=== PATIENT | female | born 1975 | race Hispanic/Latino ===

== ENCOUNTER 2024-07-07 08:22 | Emergency (ER) | payer BC ==
[~2024-07-07] VITALS: Ht 160 cm; Wt 86.2 kg
[2024-07-07 08:57] LABS: BASOPHILS # (AUTO) 0.03 K/uL (0.00-0.20); BASOPHILS % (AUTO) 0.4 % (0.0-5.0); EOSINOPHILS # (AUTO) 0.14 K/uL (0.00-0.70); EOSINOPHILS % (AUTO) 1.9 % (0.0-8.0); HEMATOCRIT 44.6 % (36-48); IMMATURE GRANULOCYTE ABSOLUTE 0.03 K/uL (0-1); LYMPHOCYTES # (AUTO) 2.4 K/uL (1.0-4.8); LYMPHOCYTES % (AUTO) 31.6 % (21.0-51.0); MEAN CORPUSCULAR HEMOGLOBIN 26.9 pg (27.0-33.0); MEAN CORPUSCULAR VOLUME 81.7 fL (79-99); MONOCYTES # (AUTO) 0.5 K/uL (0.1-1.0); MONOCYTES % (AUTO) 6.3 % (3.0-13.0); NEUTROPHILS # (AUTO) 4.5 K/uL (1.8-7.7); NEUTROPHILS % (AUTO) 59.4 % (40.0-77.0); PLATELET COUNT (AUTO) 280 K/uL (130-400); RED BLOOD CELL COUNT(AUTO) 5.46 MIL/uL (4.00-5.50); RED CELL DISTRIBUTION WIDTH 13.9 % (11.0-15.5); WHITE BLOOD COUNT (AUTO) 7.5 K/uL (4.8-10.8)
--- NOTE | 2024-07-07 09:06 | ERN ---
ED Note History of Present Illness Stated Complaint: RIGHT FLANK PAIN X 2 WEEKS Chief Complaint: Flank Pain Dictation: This is a case of 48-year-old female with no significant past medical history who presented to the ER with the complaints of right flank pain for 2 weeks. She reports that she 1st experienced pain on the right flank side 2 weeks ago and consulted a primary care physician. Kidney stones were suspected, but no imaging was done due to technical issues and was prescribed antibiotics. She states that the pain persists and is not improved. She describes the pain as constant, moderate radiating from the right mid back to the front and to the groin which increases in intensity during movement. She also notes experiencing burning sensation when urinating. She denies headache, dizziness, nausea, vomiting, chest pain, palpitations, shortness of breath, diarrhea/constipation, blood in urine. Allergies: Coded Allergies: No Known Drug Allergies (Unverified Allergy, Unknown, 07/07/24) Home Meds Active Scripts Ibuprofen (Ibuprofen 800 mg Tab) 800 Mg Tab, 1 TAB PO TID for 14 Days, #42 TAB 0 Refills Prov:TERESA PARK MD 07/07/24 Cyclobenzaprine HCl (Flexeril) 10 Mg Tab, 1 TAB PO HS PRN for muscle spasm for 14 Days, #14 TAB 0 Refills Prov:TERESA PARK MD 07/07/24 Past Medical History Past Medical History: No Pertinent History Surgical History: Cholecystectomy, Other Surgical History Other: TUBAL, L KNEE Review of System Dictation Constitutional: No appetite loss, No fevers, chills , No night sweats, No weakness, fatigue Neck: No swelling. pain or stiffness Respiratory: No cough, shortness of breath, wheezing Cardiovascular: No chest pain,, palpitations, dyspnea, No edema Gastrointestinal: Right flank pain radiating to groin No nausea, vomiting, No diarrhea, constipation Genitourinary: Burning sensation during urination, No blood in urine, No urinary incontinence, No frequency or urgency Musculoskeletal: No joint pain, muscle pain, swelling or stiffness, Neurological: No numbness, tingling, No weakness, tremors or seizures Psychiatric: : No depression, No anxiety, No sleep disturbance, No Memory changes Initial Vital Sign VS Vital Signs Date Time Temp Pulse Resp B/P (MAP) Pulse Ox O2 Delivery O2 Flow Rate FiO2 07/07/24 08:22 98.8 76 20 154/82 99 Room Air 0 07/07/24 08:56 21 Physical Exam Dictation Physical Exam Dictation VITAL SIGNS: Reviewed. GENERAL APPEARANCE: Alert, oriented x3, no acute distress, obese. HEAD AND FACE: Non-traumatic. EYES: PERRL, pink conjunctivas, eyelid no trauma, anterior chamber clear. NOSE: No discharge, no bleeding. OROPHARYNX: Mouth normal, teeth no caries, tongue pink. Pharynx clear, no erythema. Tonsils no exudates, no abscesses noted. Mucous membrane moist. NECK: Supple, non-tender, no thyromegaly, no masses, no JVD, no bruits. BREAST: Deferred. CHEST: No tenderness, no crepitus, no paradoxical movement, no retractions. LUNGS: Clear, well-ventilated, symmetric, no rales, no wheezing, no rhonchi, no stridor, good breath sounds bilaterally. HEART: Regular rate, regular rhythm, no murmur VASCULAR: No peripheral edema. ABDOMEN: Mild tenderness on palpation in right flank, right upper and lower quadrant and pelvic region Soft, positive bowel sounds, nondistended, no guarding GENITAL: Deferred. NEUROLOGICAL: Normal speech, gross motor function intact, gross sensory func tion intact. MUSCULOSKELETAL: Neck nontender, full range of motion, no midline spine tenderness, full range of motion. EXTREMITIES: Nontender, full range of motion. SKIN: Color pink, dry, no turgor, no rash, no lacerations, no abrasions, no contusions. LYMPHATICS: Deferred. Results (Laboratory/Radiology) Laboratory/Radiology Laboratory Tests Test 07/07/24 08:45 07/07/24 08:50 Urine Color LIGHT-YELLOW (YELLOW) Urine Appearance CLEAR (CLEAR) Urine pH 5.5 (5.0-8.0) Urine Specific [place] 1.020 (1.001-1.031) Urine Protein NEGATIVE mg/dL (NEGATIVE) Urine Glucose (UA) NEGATIVE mg/dL (NEGATIVE) Urine Ketones NEGATIVE mg/dL (NEGATIVE) Urine Occult Blood NEGATIVE (NEGATIVE) Urine Nitrate NEGATIVE (NEGATIVE) Urine Bilirubin NEGATIVE mg/dL (NEGATIVE) Urine Urobilinogen 0.2 mg/dL (0.2-1.0) Urine Leukocyte Esterase NEGATIVE Willi/uL White Blood Count 7.5 K/uL (4.8-10.8) Red Blood Count 5.46 MIL/uL (4.00-5.50) Hemoglobin 14.7 g/dL (12.0-16.0) Hematocrit 44.6 % (36-48) Mean Corpuscular Volume 81.7 fL (79-99) Mean Corpuscular Hemoglobin 26.9 pg (27.0-33.0) L Mean Corpuscular Hemoglobin Concent 33.0 g/dL (32.0-36.0) Red Cell Distribution Width 13.9 % (11.0-15.5) Platelet Count 280 K/uL (130-400) Mean Platelet Volume 9.8 fL (7.5-10.5) Immature Granulocyte % (Auto) 0.4 % (0-1) Neutrophils (%) (Auto) 59.4 % (40.0-77.0) Lymphocytes (%) (Auto) 31.6 % (21.0-51.0) Monocytes (%) (Auto) 6.3 % (3.0-13.0) Eosinophils (%) (Auto) 1.9 % (0.0-8.0) Basophils (%) (Auto) 0.4 % (0.0-5.0) Neutrophils # (Auto) 4.5 K/uL (1.8-7.7) Lymphocytes # (Auto) 2.4 K/uL (1.0-4.8) Monocytes # (Auto) 0.5 K/uL (0.1-1.0) Eosinophils # (Auto) 0.14 K/uL (0.00-0.70) Basophils # (Auto) 0.03 K/uL (0.00-0.20) Absolute Immature Granulocyte (auto 0.03 K/uL (0-1) Nucleated Red Blood Cells 0.0 % (0.0-0.19) Sodium Level 140 mmol/L (136-145) Potassium Level 4.1 mmol/L (3.5-5.1) Chloride Level 106 mmol/L (101-111) Carbon Dioxide Level 31 mmol/L (21-32) Blood Urea Nitrogen 14 mg/dL (7-18) Creatinine 0.9 mg/dL (0.5-1.0) Glomerular Filtration Rate Calc 78 mL/min (>90) Random Glucose 109 mg/dL (70-105) H Total Calcium 8.8 mg/dL (8.5-10.1) Total Bilirubin 0.5 mg/dL (0.2-1.0) Direct Bilirubin 0.1 mg/dL (0.0-0.3) Aspartate Amino Transf (AST/SGOT) 30 U/L (10-37) Alanine Aminotransferase (ALT/SGPT) 50 U/L (12-78) Alkaline Phosphatase 99 U/L (50-136) Total Protein 7.0 g/dL (6.0-8.3) Albumin 3.4 g/dL (3.5-5.0) L Lipase 38 U/L (16-77) CT Scan Comment: PROCEDURE: ABD PELVWO - CT ABD/PEL WO CON RENAL/APPY Exam Type: CT ABD/PEL WO CON RENAL/APPY Clinical Information: rt flank p Comparison: None CT Dose Index (CTDI): 10.20 mGy Dose Length Product (DLP): 530.00 total mGy-cm PROTOCOL: Routine noncontrast helical scanning of the abdomen and pelvis was performed at 5mm collimation. Findings: No evidence of nephro or ureterolithiasis is found. No hydronephrosis or ureteral dilatation is seen. The lung bases are clear. The stomach is unremarkable. It shows no wall thickening. No gross ulceration is seen. It is not overly distended. There are no surrounding inflammatory changes. No wall lesions are identified to suggest cancer. The spleen is unremarkable. It is not enlarged. The pancreas shows normal anatomy. It is not fatty replaced. It shows no lesions. The pancreatic duct is not dilated. The gallbladder is unremarkable. It shows no cholelithiasis. The gallbladder wall is normal in thickness. There is no pericholecystic fluid. The is no acute or chronic inflammation noted. The adrenal glands are unremarkable. There is no enlargement. No lesions are noted. The liver is unremarkable. It shows no focal masses. The appendix is unremarkable. It shows no evidence of inflammation. No appendicolith is seen. The small bowel is unremarkable. There is no evidence of dilatation to suggest obstruction. No evidence of adynamic ileus is seen. There is no small bowel wall thickening to suggest enteritis. The colon is unremarkable. The urinary bladder is unremarkable. There is no wall thickening to suggest tumor or inflammation. There are no intraluminal calculi. There are no diverticula. There is no evidence of chronic bladder outlet obstruction. There is no evidence of urinary bladder distention to suggest urinary retention. The other pelvic structures are unremarkable. The bony and vascular structures are unremarkable for the patient's age. IMPRESSION: NEGATIVE CT SCAN OF THE ABDOMEN AND PELVIS. NO RENAL STONES. NO ACUTE PATHOLOGY OR INFLAMMATION SEEN. ED Course ED Course Orders Procedure Category Date Status Time Cbc With Differential LAB 07/07/24 Complete 08:34 Basic Metabolic Panel LAB 07/07/24 Complete 08:34 Urinalysis Profile LAB 07/07/24 Complete 08:34 Lipase LAB 07/07/24 Complete 08:34 Hepatic Function Panel LAB 07/07/24 Complete 08:34 Ct Abd/Pel Wo Con CT 07/07/24 Resulted Renal/Appy 08:53 Morphine 2mg Syg PHA 07/07/24 Complete (Morphine 2mg Syg) 11:00 Current Medications Medications (Trade) Dose Ordered Sig/Flaco Route PRN Reason Start Time Stop Time Status Last Admin Dose Admin Morphine Sulfate (morPHINE 2MG SYG) 2 mg ONCE ONCE IVP 07/07/24 11:00 07/07/24 11:01 DC 07/07/24 11:03 Vital Signs Date Time Temp Pulse Resp B/P (MAP) Pulse Ox O2 Delivery O2 Flow Rate FiO2 07/07/24 11:07 98.2 71 18 112/68 98 Room Air* 0 21 07/07/24 08:56 98.2 74 18 121/72 100 Room Air* 0 21 07/07/24 08:22 98.8 76 20 154/82 99 Room Air 0 Medical Decision Making [facility] Potential differential diagnoses include: Renal stones Muscle spasm Pyelonephritis Assessment: We will order CBC to to rule any anemia, infections and to evaluate the overall health of the patient. CMP was ordered in order to assess various electrolytes, kidney function, liver function ,protein levels and blood glucose levels. CT ABDOMEN/PELVIS TO RULE OUT RENAL STONES. I will re-evaluate the patient after treatment and diagnostic exams have returned to determine whether they require further testing, can be safely discharged home, or need admission for further treatment and evaluation. Given the social determinants of health affecting care, including literacy, access to medical care, prescription drug management, and [id number] dr noe, I will ensure that treatment plans are tailored accordingly. Revaluation : PATIENT IS ALERT AWAKE AND ORIENTED. HEMODYNAMICALLY STABLE. LAB CBC, CMP, URINALYSIS RESULTS ARE UNREMARKABLE. CT ABDOMEN/PELVIS RESULTED IN NO RENAL STONES, NO ACUTE PATHOLOGY OR INFLAMMATION. Disposition: PATIENT IS BEING DISCHARGED HOME WITH ORAL PRESCRIPTION OF IBUPROFEN 800 MG T.I.D. FOR 14 DAYS, FLEXERIL 10 MG HS P.R.N. FOR MUSCLE SPASM PATIENT IS ADVISED TO Follow up with PCP within 2-3 days Advised to use ibuprofen 800 mg t.i.d.for pain/inflammation Use Flexeril 10 mg HS p.r.n. for muscle spasms Avoid heavy lifting or strenuous activities Drink plenty of water Monitor for symptoms like fever, difficulty urinating, blood in the urine, nausea, worsening of current symptoms or new symptoms and seek immediate medical attention in such scenario DX & DISP Disposition: Discharge Departure Impression: Primary Impression: Right flank pain Critical Time: 30 minutes Condition: Stable Scripts Ibuprofen (Ibuprofen 800 mg Tab) 800 Mg Tab 1 TAB PO TID for 14 Days, #42 TAB 0 Refills Prov: TERESA PARK MD 07/07/24 Cyclobenzaprine HCl (Flexeril) 10 Mg Tab 1 TAB PO HS PRN for muscle spasm for 14 Days, #14 TAB 0 Refills Prov: TERESA PARK MD 07/07/24 Referrals: GRACIELA UNDERWOOD MD (PCP) ATTESTATION BY PHYSICIAN I have seen and examined the patient. I reviewed the documentation, medical decision making, and treatment plan as noted by the RESIDENT above. I agree with the findings and plan of care. LIZ PULIDO MD, PRIYANKA MD Jul 07, 2024 09:06
[2024-07-07 09:20] LABS: APPEARANCE,URINE CLEAR (CLEAR); BILIRUBIN,URINE NEGATIVE (NEGATIVE); COLOR,URINE LIGHT-YELLOW (YELLOW); GLUCOSE, URINE (UA) NEGATIVE (NEGATIVE); KETONES,URINE NEGATIVE (NEGATIVE); LEUKOCYTE ESTERASE ,URINE NEGATIVE Leu/uL (NEGATIVE); NITRATE,URINE NEGATIVE (NEGATIVE); OCCULT BLOOD,URINE NEGATIVE (NEGATIVE); PH,URINE 5.5 (5.0-8.0); PROTEIN,URINE NEGATIVE (NEGATIVE); UROBILINOGEN,URINE 0.2 mg/dL (0.2-1.0)
[2024-07-07 09:22] LABS: ALBUMIN 3.4 g/dL (3.5-5.0); BILIRUBIN,DIRECT 0.1 mg/dL (0.0-0.3); BILIRUBIN,TOTAL 0.5 mg/dL (0.2-1.0); CREATININE 0.9 mg/dL (0.5-1.0); POTASSIUM 4.1 mmol/L (3.5-5.1)
[2024-07-07 09:23] LABS: ADD UA MICROSCOPIC NO
--- NOTE | 2024-07-07 10:01 | HMCIMG ---
Exam Type: CT ABD/PEL WO CON RENAL/APPY Clinical Information: rt flank p Comparison: None CT Dose Index (CTDI): 10.20 mGy Dose Length Product (DLP): 530.00 total mGy-cm PROTOCOL: Routine noncontrast helical scanning of the abdomen and pelvis was performed at 5mm collimation. Findings: No evidence of nephro or ureterolithiasis is found. No hydronephrosis or ureteral dilatation is seen. The lung bases are clear. The stomach is unremarkable. It shows no wall thickening. No gross ulceration is seen. It is not overly distended. There are no surrounding inflammatory changes. No wall lesions are identified to suggest cancer. The spleen is unremarkable. It is not enlarged. The pancreas shows normal anatomy. It is not fatty replaced. It shows no lesions. The pancreatic duct is not dilated. The gallbladder is unremarkable. It shows no cholelithiasis. The gallbladder wall is normal in thickness. There is no pericholecystic fluid. The is no acute or chronic inflammation noted. The adrenal glands are unremarkable. There is no enlargement. No lesions are noted. The liver is unremarkable. It shows no focal masses. The appendix is unremarkable. It shows no evidence of inflammation. No appendicolith is seen. The small bowel is unremarkable. There is no evidence of dilatation to suggest obstruction. No evidence of adynamic ileus is seen. There is no small bowel wall thickening to suggest enteritis. The colon is unremarkable. The urinary bladder is unremarkable. There is no wall thickening to suggest tumor or inflammation. There are no intraluminal calculi. There are no diverticula. There is no evidence of chronic bladder outlet obstruction. There is no evidence of urinary bladder distention to suggest urinary retention. The other pelvic structures are unremarkable. The bony and vascular structures are unremarkable for the patient's age. IMPRESSION: NEGATIVE CT SCAN OF THE ABDOMEN AND PELVIS. NO RENAL STONES. NO ACUTE PATHOLOGY OR INFLAMMATION SEEN. This study was performed using dose reduction techniques to include automated exposure control and/or adjustment of the mA and/or kV according to patient size.
[2024-07-07] MEDS: morPHINE 2 MG SYG IVP ONE (11:03)
[2024-07-07 11:07] VITALS: BP 112/68; PULSE 71; RESP 18; TEMP 98.2; O2SAT 98
[2024-07-07] MEDS ORDERED: IBUP-2077 PO (11:19)
[2024-07-07] MEDS ORDERED: CYCL10TA16 PO (11:19)
[2024-07-08] MEDS ORDERED: IBUP-2077 PO (11:00)
[2024-07-08] MEDS ORDERED: CYCL-309 PO (11:00)
[2024-07-08] MEDS ORDERED: METH4TAB3 PO (11:00)
== END 2024-07-07 11:29 | disposition home or self-care (01) ==
LOC: EDH 08:22
DX: R10.11 Right upper quadrant pain (principal); R10.31 Right lower quadrant pain; R10.2 Pelvic and perineal pain; Z79.1 Long term (current) use of non-steroidal anti-inflammatories (NSAID); Z90.49 Acquired absence of other specified parts of digestive tract
CPT/HCPCS: 99284; 74176; 96374; 80076; 80048; 83690; 85025; 81003; 36415; J2270

== ENCOUNTER 2024-07-08 09:37 | Emergency (ER) | payer BC ==
[~2024-07-08] VITALS: Ht 160 cm; Wt 87.5 kg
[~2024-07-08 09:37] MED LIST: CYCL10TA16 PO; IBUP-2077 PO
--- NOTE | 2024-07-08 10:24 | ERN ---
ED Note History of Present Illness Stated Complaint: LOW BACK PAIN Chief Complaint: Back Pain or Injury Time Seen by MD: 10:04 Dictation: PATIENT IS A 48-YEAR-OLD FEMALE HERE WITH COMPLAINTS OF DIFFUSE LUMBOSACRAL PAIN SHE HAS HAD FOR ONE WEEK. SHE SAID IT WAS NON TRAUMA DENIES ANY RADIATION OF PAIN NO NAUSEA VOMITING NO CHANGE IN URINATION. SHE WAS SEEN HERE LAST NIGHT AND WAS GIVEN A SHOT OF MORPHINE AFTER CT SCAN AND LABS TO INCLUDE URINE WERE DONE AND DEMONSTRATED NO NEPHROLITHIASIS. SHE STATES SHE SAW HER PRIMARY CARE DOCTOR LAST WEEK WHO TOLD HER TO TAKE CYCLOBENZAPRINE 10 MG ONE P.O. HS AND IT HAS NOT HELPING. SHE DENIES ANY RADICULAR PAIN OR SCIATICA NO CHANGE IN BOWEL OR BLADDER FUNCTION. Allergies: Coded Allergies: No Known Drug Allergies (Unverified Allergy, Unknown, 07/07/24) Home Meds Active Scripts Ibuprofen (Ibuprofen 800 mg Tab) 800 Mg Tab, 1 TAB PO TID for 14 Days, #42 TAB 0 Refills Prov:TERESA PARK MD 07/07/24 Cyclobenzaprine HCl (Flexeril) 10 Mg Tab, 1 TAB PO HS PRN for muscle spasm for 14 Days, #14 TAB 0 Refills Prov:TERESA PARK MD 07/07/24 Past Medical History Past Medical History: No Pertinent History Surgical History: Cholecystectomy, Other, BTL Surgical History Other: LT KNEE, History: Not Applicable RN Note Reviewed/Agreed w/PFSH: Yes Review of System Dictation CONSTITUTIONAL: NEGATIVE EXCEPT FOR HPI HEAD/FACE: NEGATIVE EXCEPT FOR HPI EENT: NEGATIVE EXCEPT FOR HPI RESPIRATORY: NEGATIVE EXCEPT FOR HPI GASTROINTESTINAL/ABDOMINAL: NEGATIVE EXCEPT FOR HPI GENITOURINARY: NEGATIVE EXCEPT FOR HPI MUSCULOSKELETAL: NEGATIVE EXCEPT FOR HPI-DIFFUSE LUMBOSACRAL TENDERNESS/PAIN INTEGUMENTARY: NEGATIVE EXCEPT FOR HPI NEUROLOGICAL/PSYCH: NEGATIVE EXCEPT FOR HPI HEMATOLOGIC/LYMPHATIC: NEGATIVE EXCEPT FOR HPI ALL SYSTEMS NEGATIVE, EXCEPT NOTED ABOVE. 13 POINT REVIEW OF SYSTEMS ASSESSED AND ALL NEGATIVE EXCEPT FOR ABOVE. Initial Vital Sign VS Vital Signs Date Time Temp Pulse Resp B/P (MAP) Pulse Ox O2 Delivery O2 Flow Rate FiO2 07/08/24 09:38 97.7 87 18 109/71 Room Air 0 07/08/24 09:44 97 21 Physical Exam Dictation VITAL SIGNS REVIEWED GENERAL APPEARANCE: ALERT, ORIENTED X 3, MODERATE ACUTE DISTRESS, WELL DEVELOPED, NOURISHED. HEAD AND FACE: NON-TRAUMATIC. EYES: PERRL, PINK CONJUNCTIVAS, EYELID NO TRAUMA, ANTERIOR CHAMBER WITH ARCUS SENILIS. EARS: PINNAS INTACT AND NO SIGNS OF TRAUMA OR ERYTHEMA EAR CANALS CLEAR AND NO DISCHARGE TM NO ERYTHEMA NOSE: NO DISCHARGE, NO BLEEDING. OROPHARYNX: MOUTH NORMAL, TONGUE PINK, PHARYNX CLEAR,NO ERYTHEMA, TONSILS NO EXUDATES, NO ABSCESSES NOTED, MUCOUS MEMBRANE MOIST NECK: SUPPLE, NON-TENDER, NO THYROMEGALY, NO MASSES, NO JVD, NO BRUITS BREAST:DEFERRED CHEST:NO TENDERNESS, NO CREPITUS, NO PARADOXICAL MOVEMENT, NO RETRACTIONS LUNGS:CLEAR, WELL-VENTILATED, SYMMETRIC, NO RALES, NO WHEEZING, NO RHONCHI, NO STRIDOR, GOOD BREATH SOUNDS BILATERALLY HEART: REGULAR RATE, REGULAR RHYTHM, NO MURMUR, NO GALLOPS VASCULAR: NO PERIPHERAL EDEMA, ABDOMEN: SOFT, POSITIVE BOWEL SOUNDS, NONDISTENDED, NO GUARDING, NONTENDER, NO REBOUND, NO MASSES NO HEPATOMEGALY, NO SPLENOMEGALY, NO BERGER'S SIGN, NO HERNIAS. RECTAL: DEFERRED GENITAL: DEFERRED NEUROLOGICAL: NORMAL SPEECH, MOTOR FUNCTION INTACT, SENSORY FUNCTION INTACT PAIN MUSCULOSKELETAL: NECK NONTENDER, FULL RANGE OF MOTION, DIFFUSE LUMBOSACRAL TENDERNESS, NO MIDLINE SPINE, FULL RANGE OF MOTION, NO STEP-OFF. NEGATIVE STRAIGHT LEG RAISE BILATERALLY 10 DEGREE EXTREMITIES: NONTENDER, FULL RANGE OF MOTION SKIN: COLOR PINK, DRY, NO TURGOR, NO RASH, NO LACERATIONS, NO ABRASIONS, NO CONTUSIONS. LYMPHATIC: DEFERRED Results (Laboratory/Radiology) Labs Reviewed?: Yes ED Course ED Course Orders Procedure Category Date Status Time Dexamethasone 4mg/Ml PHA 07/08/24 Complete 1ml Vial (Dexametha 10:30 Ketorolac 60mg/2ml PHA 07/08/24 Complete (Toradol 60mg/2ml) 10:30 Current Medications Medications (Trade) Dose Ordered Sig/Flaco Route PRN Reason Start Time Stop Time Status Last Admin Dose Admin Dexamethasone Sodium Phosphate (dexaMETHasone 4MG/ML 1ML VIAL) 8 mg ONCE ONCE IM 07/08/24 10:30 07/08/24 10:31 DC Ketorolac Tromethamine (toRADol 60MG/ 2ML) 60 mg ONCE ONCE IM 07/08/24 10:30 07/08/24 10:31 DC Vital Signs Date Time Temp Pulse Resp B/P (MAP) Pulse Ox O2 Delivery O2 Flow Rate FiO2 07/08/24 09:44 97.7 87 18 97 Room Air* 0 21 07/08/24 09:38 97.7 87 18 109/71 Room Air 0 1058 PATIENT WAS HERE YESTERDAY AND HAD FULL WORKUP FOR FLANK PAIN TO INCLUDE CT SCAN WITHOUT CONTRAST NO NEPHROLITHIASIS. PATIENT HAS BEEN TAKING A SINGLE CYCLOBENZAPRINE WE WILL BE DISCHARGED HOME AFTER TORADOL AND DECADRON IM. Medical Decision Making MDM MEDICAL DISCHARGE MAKING BASED ON EMPIRIC TREATMENT FOR LUMBOSACRAL PAIN. 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 DISCHARGED HOME WITH NEUROLOGICALLY INTACT TO LOWER EXTREMITIES WE WILL BE SENT HOME WITH IBUPROFEN/CYCLOBENZAPRINE/MEDROL DOSEPAK AND TOLD TO SEE YOUR DOCTOR WEDNESDAY DX & DISP Disposition: Discharge Departure Impression: Primary Impression: Acute lumbosacral myofascial strain Condition: Stable Scripts Methylprednisolone (Medrol) 4 Mg Tab.ds.pk 1 TAB PO AD for 6 Days, #21 TAB 0 Refills 6 on day 1 then reduce by one tablet daily until gone Prov: GENE CONTRERAS NP 07/08/24 Ibuprofen (Ibuprofen 800 mg Tab) 800 Mg Tab 800 MG PO Q8H PRN for fever or pain, #30 TAB 0 Refills Prov: GENE CONTRERAS NP 07/08/24 Cyclobenzaprine HCl (Cyclobenzaprine HCl) 10 Mg Tablet 1 TAB PO TID for muscle spasms for 10 Days, #30 TAB 0 Refills Prov: GENE CONTRERAS NP 07/08/24 Additional Instructions: FOLLOW-UP WITH PRIMARY CARE PROVIDER IN 1 TO 2 DAYS. TAKE MEDICATIONS DIRECTED HERE IN THE EMERGENCY ROOM. OKAY TO CONTINUE HOME MEDICATIONS UNLESS OTHERWISE DISCUSSED DURING YOUR VISIT IN THE EMERGENCY ROOM TODAY. RETURN TO YOUR NEAREST EMERGENCY ROOM IF SYMPTOMS WORSEN OR IF THERE IS NO IMPROVEMENT. CALL 911 IF YOU NEED IMMEDIATE ASSISTANCE. TAKE TYLENOL OR MOTRIN [id number] NEEDED AND IF NO CONTRAINDICATIONS ARE PRESENT. INCREASE ORAL HYDRATION. A WOUND CULTURE OR URINE CULTURE WAS ORDERED HERE IN THE EMERGENCY ROOM DEPARTMENT PLEASE FOLLOW-UP WITH PRIMARY CARE PROVIDER AND ADVISE THEM TO GET REPEAT PORTS FROM OUR FACILITY. IF YOU HAD ANY JOSE MIGUEL WRAP/SPLINTS THAT WERE APPLIED HERE, PLEASE DO NOT REMOVE THEM UNTIL YOU SEE YOUR PRIMARY CARE OR SPECIALTY. TAKE IBUPROFEN AND FLEXERIL EVERY8 HOURS WITH FOOD FOR THE NEXT THREE DAYS. WARM COMPRESSES PAIN THREE TO 4 TIMES A DAY., TAKE MEDROL DOSEPAK DIRECTED UNTIL GONE. NO LIFTING GREATER THAN 10 LB TO YOU SEE YOUR DOCTOR ON WEDNESDAY. Referrals: GRACIELA UNDERWOOD MD (PCP) Time of Disposition: 10:59 I have reviewed the case, and I agree with, Diagnosis and Plan GENE CONTRERAS NP Jul 08, 2024 10:24
[2024-07-08] MEDS ORDERED: CYCL-309 PO (11:00)
[2024-07-08] MEDS ORDERED: IBUP-2077 PO (11:00)
[2024-07-08] MEDS ORDERED: METH4TAB3 PO (11:00)
[2024-07-08] MEDS: dexaMETHasone SOD PHOSPHATE 4 MG/ML 1ML VIAL IM ONE (12:06)
[2024-07-08] MEDS: ketOROlac 60 MG VIAL (30MG/ML) IM ONE (12:06)
[2024-07-08 12:08] VITALS: BP 115/70; PULSE 85; RESP 16; TEMP 98.1; O2SAT 98
== END 2024-07-08 12:13 | disposition home or self-care (01) ==
LOC: EDH 09:37
DX: S39.012A Strain of muscle, fascia and tendon of lower back, initial encounter (principal); Z79.1 Long term (current) use of non-steroidal anti-inflammatories (NSAID); Z90.49 Acquired absence of other specified parts of digestive tract; Z98.51 Tubal ligation status; X58.XXXA Exposure to other specified factors, initial encounter; Y93.89 Activity, other specified; Y92.89 Other specified places as the place of occurrence of the external cause; Y99.8 Other external cause status
CPT/HCPCS: 99284; 96372 ×2; J1100; J1885